=== PATIENT | male | born 1955 | race Caucasian/White ===

== ENCOUNTER → 2016-07-12 | Day surgery (SDC) | payer OTHER ==
[~2016-07-12] VITALS: Ht 182.9 cm; Wt 90.7 kg
[~2016-07-12] MED LIST: ALLOPURINOL100 M1 PO
--- NOTE | 2016-07-12 09:39 | Operative Report ---
Operative/Inv Procedure Report Surgery Date: 07/12/16 Name of Procedure: Excision and destruction of perianal condyloma Pre-Operative Diagnosis: Perianal condyloma Post-Operative Diagnosis: Perianal condyloma Estimated Blood Loss: scant Surgeon/Test Pilot: MIGUEL NÚÑEZ JR, DO Anesthesia: local monitored anesthesi, block Monitors: Per routine Specimens: Multiple condyloma, please evaluate for AIN Complications: None Condition: Good Operative Indication: This is a 61-year-old gentleman on who was been the long-standing patient of mine. He has recurrent perianal condyloma. Disease is too extensive for office treatment. Patient does not tolerate office anoscopy. So I want to give him anesthesia could look in the anal canal for evidence of condyloma Operative/Procedure Note Note: Patient was taken into the operating room. Placed in supine position on the operating room table. IV sedation was initiated and he was converted to lith[facility]. The perineum was prepped and draped in usual fashion and then an anal block was performed. The block was performed with 0.5% Marcaine and epinephrine and a total of 40 mL was injected. After completing the block and gentle digital exam was performed and then anoscopy was performed. Patient did have some condyloma right at the anal verge but none within the anal canal proper. Patient had moderate to extensive disease of the anal margin. Several of the larger lesions were then sharply excised tangentially off the epidermis and sent for routine path. All visible lesions were then fulgurated with electrocautery. The eschar was wiped away and repeat fulguration was performed at each site. At this point the procedure was concluded. The perineum was cleansed and dried. Silvadene ointment was applied and a bulky dressing was placed. The patient tolerated the procedure well and left the end of the procedure all needle sponges and attention was workout for. Findings: Extensive condyloma involving anal margin and anal verge No disease within the anal canal
== END ==
LOC: STS 01:50
DX: A63.0 Anogenital (venereal) warts (principal); K62.82 Dysplasia of anus; M10.9 Gout, unspecified
CPT/HCPCS: 88305; J0131; J1885; J2250